=== PATIENT | female | born 1980 | race Caucasian/White ===

== ENCOUNTER 2016-08-03 19:06 | Emergency (ER) | payer OTHER ==
[~2016-08-03] VITALS: Ht 167.6 cm; Wt 68.0 kg
[~2016-08-03 19:06] MED LIST: ECHINACEA80 MG PO; FLONASE 0.05%50 MCG NASAL; NAPROSYN500 MG PO; NORFLEX100 MG PO; PROBIOTIC1 EAC1 PO; TESSALON PERLE100 MG PO; UNICOMPLEX M TA1 TA1 PO
[2016-08-03 21:46] VITALS: BP 153/99
[2016-08-03] MEDS ORDERED: BACTRIM DS TAB1 EACH PO (22:15)
[2016-08-03] MEDS ORDERED: PEPCID20 MG PO (22:16)
== END 2016-08-03 22:28 | disposition home or self-care (01) ==
LOC: ER 19:06
DX: N39.0 Urinary tract infection, site not specified (principal); F17.210 Nicotine dependence, cigarettes, uncomplicated; Z88.0 Allergy status to penicillin; Z88.1 Allergy status to other antibiotic agents; Z88.8 Allergy status to other drugs, medicaments and biological substances